=== PATIENT | male | born 1975 | race Caucasian/White ===

== ENCOUNTER 2019-01-07 19:24 | Emergency (ER) | payer BC ==
[~2019-01-07] VITALS: Ht 190.5 cm; Wt 90.9 kg
[~2019-01-07 19:24] MED LIST: ALLEGRA-D TABLE1 TAB PO; ALLEGRA60 MG PO; CEFTIN500 MG PO; LEVAQUIN 5500 MG/TA1 PO; NORCO 325 MG-51 TAB PO; PREDNISONE20 MG PO; TUSS PO
[2019-01-07 19:29] VITALS: BP 141/79; TEMP 97.7
[2019-01-07] MEDS ORDERED: ILOTYCIN5 MG/GM OP (20:06)
[2019-01-07 20:33] VITALS: PULSE 76
== END 2019-01-07 20:35 | disposition home or self-care (01) ==
LOC: COL.ER 19:24
DX: S05.01XA Injury of conjunctiva and corneal abrasion without foreign body, right eye, initial encounter (principal); W22.8XXA Striking against or struck by other objects, initial encounter

== ENCOUNTER 2019-05-18 16:43 | Emergency (ER) | payer BC ==
[~2019-05-18] VITALS: Ht 190.5 cm; Wt 95.0 kg
[~2019-05-18 16:43] MED LIST changes: +ILOTYCIN5 MG/GM OP
[2019-05-18 17:32] VITALS: TEMP 98.7
[2019-05-18 18:25] LABS: BASO # 0.1 (0.0-0.2); BASO % 0.8 % (0.0-2.0); EOS # 0.4 (0.0-0.7); HEMATOCRIT 43.8 % (42.0-52.0); HEMOGLOBIN 14.9 g/dl (13.5-18.0); LYMPH # 2.7 (1.2-3.4); LYMPH % 35.4 % (20.0-51.0); MEAN CELL VOLUME 85 fl (80.0-100.0); MEAN CORPUSCULAR HEMOGLOBIN 29 pg (27.0-31.0); MEAN CORPUSCULAR HGB CONC 34 g/dl (33.0-37.0); MEAN PLATELET VOLUME 9.9 fl (7.4-10.4); MONO # 0.6 (0.1-0.6); MONO % 7.5 % (1.7-9.3); PLATELET COUNT 225 K/mm3 (130-400); RED BLOOD COUNT 5.16 M/mm3 (4.20-5.60); REDCELL DISTRIBUTION WIDTH-CV 13.4 % (11.5-14.5)
[2019-05-18 18:29] LABS: PROTHROMBIN TIME 11.6 SECONDS (9.7-12.8)
[2019-05-18 18:33] LABS: D-DIMER < 200.00 ng/mLDDu (200-230)
[2019-05-18 18:36] LABS: ALANINE AMINOTRANSFERASE 20 U/L (21-72); ALBUMIN 4.2 gm/dL (3.5-5.0); ALKALINE PHOSPHATASE 60 U/L (50-136); ANION GAP 7 mmol/L (7-16); AST,SGOT 19 U/L (15-37); BILIRUBIN,TOTAL 1.6 mg/dL (0.0-1.0); BLOOD UREA NITROGEN 10 mg/dL (9-20); CARBON DIOXIDE 27 mmol/L (22-30); CHLORIDE 106 mmol/L (98-107); CREATINE KINASE 75 U/L (55-170); CREATININE, serum 1.03 (0.66-1.25); GLUCOSE 99 mg/dL (74-106); SODIUM 141 mmol/L (137-145); TOTAL PROTEIN 6.9 gm/dL (6.4-8.2)
[2019-05-18 18:52] LABS: TROPONIN-I < 0.012 ng/mL (0.000-0.035)
[2019-05-18 21:15] VITALS: BP 140/99; PULSE 77
== END 2019-05-18 21:15 | disposition home or self-care (01) ==
LOC: COL.ER 16:43
PROVIDERS: Emergency Medicine
DX: M79.602 Pain in left arm (principal); R42 Dizziness and giddiness; F41.9 Anxiety disorder, unspecified; Z90.49 Acquired absence of other specified parts of digestive tract
CPT/HCPCS: J7030

== ENCOUNTER → 2021-06-17 | Day surgery (SDC) | payer BC ==
[~2021-06-17] VITALS: Ht 190.5 cm; Wt 94.4 kg
[~2021-06-17] MED LIST changes: +FLONASEALLERGY NS
[2021-06-17 10:16] VITALS: BP 129/87; PULSE 77; TEMP 98
--- NOTE | 2021-06-17 10:21 | NUR ---
Initial visit; Patient thanked Rn Lvn for offering prayer prior to his 'Procedure.'
[2021-06-17 12:05] VITALS: BP 116/78; PULSE 63; TEMP 97
--- NOTE | 2021-06-17 12:05 | NUR ---
PATIENT TRANSPORTED PER CART FROM GI SUITE TO BAY 4 ACCOMPANIED BY ENDO RN. PATIENT AMBULATED FROM CART TO CHAIR WITH SLOW STEADY GAIT AND 1 ASSIST. MONITORS APPLIED. VSS ON ROOM AIR. NO FAMILY IN ROOM. PATIENT FAMILY MEMBER CALLED TO BE READY TO MINING CAPTAIN. PATIENT TALKS WITH STAFF. WARM BLANKETS PROVIDED. VERBAL REPORT RECEIVED.
[2021-06-17 12:15] VITALS: BP 128/95; PULSE 60
--- NOTE | 2021-06-17 12:15 | NUR ---
VSS ON ROOM AIR. PATIENT TOLERATES EATING MARY GRACKER AND DRINKS PEPSI WITHOUT PROBLEMS. DENIES NAUSEA AND DISCOMFORT. DR JACOB SPEAKS WITH PATIENT.
[2021-06-17 12:30] VITALS: BP 130/70; PULSE 54
--- NOTE | 2021-06-17 12:30 | NUR ---
VSS ON ROOM AIR. PATIENT DOING WELL. PATIENT STATES READY TO GO HOME. 1334 IV DC'D WITH CATHETER TIP INTACT. PRESSURE AND BANDAGE APPLIED. 1240 DISCHARGE INSTRUCTIONS GIVEN VERBAL AND DISCHARGE PACKET PROVIDED. QUESTIONS ANSWERED AND PATIENT VOICED UNDERSTANDING. PATIENT CHANEGES INTO STREET CLOTHES.
--- NOTE | 2021-06-17 12:46 | NUR ---
PATIENT DISCHARGED PER WHEEL CHAIR ACCOMPANIED BY AMB RN TO PRIVATE VECHILE DRIVEN BY PATIENT FAMILY MEMBER.
== END ==
LOC: SDCO 09:54
DX: Z12.11 Encounter for screening for malignant neoplasm of colon (principal); D12.3 Benign neoplasm of transverse colon; K64.0 First degree hemorrhoids; Z87.891 Personal history of nicotine dependence
CPT/HCPCS: J2704; J7120